=== PATIENT | female | born 2000 | race African-American/Black ===

== ENCOUNTER 2020-08-09 07:52 | Emergency (ER) | payer OTHER ==
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
[2020-08-09 08:41] VITALS: BP 120/75
== END 2020-08-09 08:42 | disposition home or self-care (01) ==
LOC: ED 07:52
DX: R51.9 Headache, unspecified (principal); V09.00XA Pedestrian injured in nontraffic accident involving unspecified motor vehicles, initial encounter; Y93.01 Activity, walking, marching and hiking; Y92.139 Unspecified place military base as the place of occurrence of the external cause
CPT/HCPCS: 99282

== ENCOUNTER 2023-05-16 15:06 | Emergency (ER) | payer OTHER ==
[2023-05-16 15:19] VITALS: BP 144/81; O2SAT 98
--- NOTE | 2023-05-16 15:57 | ED Physician Documentation ---
History of Present Illness - Stated complaint Stated Complaint: SHARP NECK PX - Chief complaint Chief Complaint: General - History obtained from History obtained from: Patient - History of Present Illness Timing: How many days ago (3) Pain level max: 7 Pain level now: 7 - Additonal information Additional information: 23-year-old female complains of neck pain for the past 3 days. Worse with movement, better with rest. Does not recall any injuries. No fevers. No chills. No numbness. No tingling. Denies any possibility of . No trauma. Has not had similar symptoms previously. Review of Systems Constitutional: denies: Fever, Chills GI: denies: Vomiting, Constipation : denies: Now [place] PD PAST MEDICAL HISTORY - Past Medical History Past Medical History: No - Past Surgical History Past Surgical History: No - Present Medications Home Medications: Ambulatory Orders Medication Instructions Recorded Confirmed Cyclobenzaprine [Flexeril] 10 mg PO TID PRN #20 tablet 05/16/23 Meloxicam [Mobic] 7.5 mg PO BID PRN #20 tablet 05/16/23 Oxycodone HCl/Acetaminophen 1 - 2 each PO Q6H PRN #14 tablet 05/16/23 [Percocet 5-325 mg Tablet] MDD 6 tabs - Allergies Allergies/Adverse Reactions: Allergies Allergy/AdvReac Type Severity Reaction Status Date / Time No Known Drug Allergies Allergy Verified 08/09/20 08:12 - Social History Does the pt smoke?: No Smoking Status: Never smoker Does the pt drink ETOH?: Yes Does the pt have substance abuse?: No - Immunizations Immunizations are current?: Yes PD ED PE NORMAL - Vitals Vital signs reviewed: Yes - General General: Alert and oriented X 3, No acute distress - HEENT HEENT: PERRL, Moist mucous membranes - Neck Neck: Supple, no meningeal sign, No bony TTP (No midline tenderness to palpation or percussion. No step-off or deformity. Paraspinal spasm left paracervical. Limited range of motion of the neck. She has fairly good range of motion down towards her chest but pain when extending her chin or especially turning left and right. NVI) - Cardiac Cardiac: RRR, Strong equal pulses - Respiratory Respiratory: No respiratory distress, Clear bilaterally - Abdomen Abdomen: Soft, Non tender, Non distended - Derm Derm: Warm and dry - Extremities Extremities: Normal ROM s pain - Neuro Neuro: Alert and oriented X 3, handicraft or hobby shop manager 2-12 intact, No motor deficit, No sensory deficit, Normal speech Eye Opening: Spontaneous Motor: Obeys Commands Verbal: Oriented GCS Score: 15 - Psych Psych: Normal mood, Normal affect Results - Vitals Vitals: Vital Signs - 24 hr 05/16/23 15:11 Temperature 37.2 C Heart Rate 98 Respiratory 20 Rate Blood Pressure 144/81 H O2 Saturation 98 Oxygen O2 Source Room air PD Medical Decision Making - ED course Complexity details: considered differential, d/w patient ED course: 23-year-old female with what appears to be muscular spasm, right neck. Gradually worsened over the past [address] on pain medications and muscle relaxants for home. No fevers. No evidence of infection, meningitis, sepsis, subarachnoid hemorrhage. No headache. Patient is well-appearing, nontoxic. Encourage gentle stretching at home. Patient counseled regarding signs and symptoms for which I believe and urgent re-evaluation would be necessary. Patient with good understanding of and agreement to plan and is comfortable going home at this time This document was made in part using voice recognition software. While efforts are made to proofread this document, sound alike and grammatical errors may occur. Departure - Departure Disposition: 01 Home, Self Care Clinical Impression: Wry neck Condition: Good Instructions: ED Spasm Neck No Injury Follow-Up: [facility] [Provider Group] Prescriptions: Cyclobenzaprine [Flexeril] 10 mg PO TID PRN #20 tablet PRN Reason: Spasms Meloxicam [Mobic] 7.5 mg PO BID PRN #20 tablet PRN Reason: Pain Oxycodone HCl/Acetaminophen [Percocet 5-325 mg Tablet] 1 - 2 each PO Q6H PRN #14 tablet MDD 6 tabs PRN Reason: pain Comments: Please follow-up with your doctor for further care. You appear to have a spasm of the muscles around your cervical spine today. Continue to gently stretch this at home. This should improve over the next few days. Use the pain medication and muscle relaxants to help speed your recovery. Please follow-up with your doctor for further care. Return if you worsen. Your prescription was sent to [facility] in [place]. I am prescribing a short course of narcotic pain medication for you. These are potentially dangerous and addictive medications that should be used carefully. These medications may constipate you. Take an nioz-jbs-rzcrapf stool softener (docusate) twice daily with plenty of water while taking these medications. If you go 24 hours without a bowel movement, take [id number]-lkv-wzgfmko miralax, per package instructions. Do not drink or drive while taking these medications. If you received narcotic or sedating medications while in the emergency department, do not drive for 24 hours. Store this medication in a safe, secure place and out of reach of children. It is a violation of federal law to give or sell this medication to another person or to use in a manner other than prescribed. The ED will not refill narcotic prescriptions, including prescriptions lost or stolen. To dispose of unwanted medications: 1. [facility] at [address] in [place] has a medication drop box. They accept prescription medications (in pill form) Thursday through Thursday 9:00 a.m. to 5:00 p.m. 2. The [facility] [employer] accepts prescription medications (in pill form only) for disposal year round. Call for more information. 3. Contact the [facility] for the next [facility] sponsored prescription drug collection event. , [phone], or [phone]; Forms: PCP List, Activity restrictions Discharge Date/Time: 05/16/23 16:12
[2023-05-16] MEDS: oxyCODONE 5 MG TABLET PO STA (16:04)
[2023-05-16] MEDS: CYCLOBENZAPRINE 10 MG TABLET PO STA (16:05)
== END 2023-05-16 16:12 | disposition home or self-care (01) ==
LOC: ED 15:06
DX: M43.6 Torticollis (principal)
CPT/HCPCS: 99283

== ENCOUNTER 2024-01-13 08:00 | Outpatient (CLI) | payer OTHER ==
[2024-01-14 07:36] LABS: BILIRUBIN,URINE NEGATIVE (NEGATIVE); GLUCOSE, URINE (UA) NEGATIVE (NEGATIVE); KETONES,URINE (UA) NEGATIVE (NEGATIVE); LEUKOCYTE ESTERASE, URINE NEGATIVE (NEGATIVE); NITRITE,URINE NEGATIVE (NEGATIVE); OCCULT BLOOD,URINE NEGATIVE (NEGATIVE); PROTEIN,URINE NEGATIVE (NEGATIVE); UROBILINOGEN,URINE 0.2 (NORMAL) E.U./dL (NORMAL)
[2024-01-14 07:51] LABS: CLARITY,URINE CLEAR (CLEAR)
[2024-01-14 07:52] LABS: BACTERIA,URINE Rare /HPF (None Seen); RBC,URINE None Seen /HPF (0-5); SQUAMOUS EPITHELIAL CELL,UR RARE Squamous (<= Few); WBC,URINE 0-3 /HPF (0-5)
== END 2024-01-13 23:59 | disposition home or self-care (01) ==
LOC: LAB.WC 08:00
PROVIDERS: ATTEND Obstetrics & Gynecology
DX: Z34.00 Encounter for supervision of normal first pregnancy, unspecified trimester (principal)
CPT/HCPCS: 81001; 87086

== ENCOUNTER 2024-01-20 19:47 | Outpatient (CLI) | payer OTHER ==
--- NOTE | 2024-01-20 21:38 | Ultrasound Report ---
PROCEDURE: OB 1st Trimester INDICATIONS: POSITIVE TEST OUTSIDE/PRIOR DATING DATA: Last menstrual period (LMP): 11/08/2023. LMP-based estimated date of delivery (TANISHA): 08/14/2024. First dating scan (date and location): 01/20/2024. Estimated date of delivery (TANISHA) from first dating scan: 08/11/2024. TECHNIQUE: Real-time scanning was performed of the fetus and maternal pelvic organs, with image documentation. COMPARISON: None. FINDINGS: Intrauterine gestational sac present. Embryo: [place]-rump length measures 3.9 cm, consistent with 10 weeks and 6 days. Heart rate: 169 bpm. Other: Subchorionic bleed measuring 1.9 x 1.7 x 2.9 cm. Measurement variability in dating: +/- 4 weeks by LMP, +/- 7 days by mean sac diameter (use before 6 weeks gestation if crown-rump length not able to be measured), +/- 5 days by crown-rump length (6-12 weeks gestation). Maternal organs: Left paraovarian cyst measuring 2.8 cm. Right ovarian simple cyst measuring 2 cm.. IMPRESSION: 1.Single live intrauterine consistent with 10 weeks and 6 days. 2.Subchorionic hemorrhage measuring 1.9 x 1.7 x 2.9 cm. Reviewed by: Vic Reid MD on 01/20/2024 9:37 PM PDT Approved by: Vic Reid MD on 01/20/2024 9:37 PM PDT Station ID: [id number]
== END 2024-01-20 19:48 | disposition home or self-care (01) ==
LOC: DI 19:47
PROVIDERS: ATTEND Obstetrics & Gynecology
DX: O20.8 Other hemorrhage in early pregnancy (principal); Z3A.10 10 weeks gestation of pregnancy

== ENCOUNTER 2024-02-09 11:57 | Emergency (ER) | payer OTHER ==
[2024-02-09 12:13] VITALS: BP 129/75; O2SAT 100
[2024-02-09 12:31] LABS: RAPID STREP SCREEN Negative (Negative)
[2024-02-09 13:15] LABS: CORONAVIRUS 229E-RESP PCR NOT DETECTED; CORONAVIRUS HKU1-RESP PCR NOT DETECTED; CORONAVIRUS NL63-RESP PCR NOT DETECTED; CORONAVIRUS OC43-RESP PCR NOT DETECTED
[2024-02-09 13:16] LABS: B. PARAPERTUSSIS- RESP PCR PAN NOT DETECTED; B. PERTUSSIS- RESP PCR PANEL NOT DETECTED; C. PNEUMONIAE- RESP PCR PANEL NOT DETECTED; HUMAN METAPNEUMOVIRUS NOT DETECTED; INFLUENZA A- RESP PCR PANEL NOT DETECTED; INFLUENZA B - RESP PCR PANEL NOT DETECTED; M. PNEUMONIAE- RESP PCR PANEL NOT DETECTED; PARAINFLUENZA VIRUS 1 NOT DETECTED; PARAINFLUENZA VIRUS 2 NOT DETECTED; PARAINFLUENZA VIRUS 3 NOT DETECTED; PARAINFLUENZA VIRUS 4 NOT DETECTED; RHINOVIRUS/ENTEROVIRUS NOT DETECTED; RSV- RESP PCR PANEL NOT DETECTED
[2024-02-09 13:17] LABS: SARS-CoV-2 -RESP PCR PANEL DETECTED
--- NOTE | 2024-02-09 13:21 | ED Physician Documentation ---
History of Present Illness - Stated complaint Stated Complaint: SORE THROAT, CHEST PX, WEAKNESS - Chief complaint Chief Complaint: General - Additonal information Additional information: 24-year-old female who presents with cough sore throat nasal congestion for 2 days. She is feeling slightly better today but is fatigued and achy. She is 13w . She works at a daycare. She is requesting a note to be off of work due to illness. She denies any fever, no chest pain or difficulty breathing, no abdominal pain nausea vomiting or diarrhea. No vaginal bleeding or abd pain. Review of Systems Constitutional: reports: Myalgias, Fatigue Eyes: reports: Reviewed and negative Ears: reports: Reviewed and negative Nose: reports: Rhinorrhea / runny nose, Congestion Throat: reports: Sore throat Cardiac: reports: Reviewed and negative Respiratory: reports: Cough. denies: Dyspnea, Wheezing GI: reports: Reviewed and negative : reports: Reviewed and negative PD PAST MEDICAL HISTORY - Past Medical History Past Medical History: Yes - Past Surgical History Past Surgical History: No - Present Medications Home Medications: Ambulatory Orders Medication Instructions Recorded Confirmed Cyclobenzaprine [Flexeril] 10 mg PO TID PRN #20 tablet 05/16/23 Meloxicam [Mobic] 7.5 mg PO BID PRN #20 tablet 05/16/23 Oxycodone HCl/Acetaminophen 1 - 2 each PO Q6H PRN #14 tablet 05/16/23 [Percocet 5-325 mg Tablet] MDD 6 tabs - Allergies Allergies/Adverse Reactions: Allergies Allergy/AdvReac Type Severity Reaction Status Date / Time No Known Drug Allergies Allergy Verified 02/09/24 12:09 - Social History Does the pt smoke?: No Smoking Status: Never smoker Does the pt drink ETOH?: Yes Does the pt have substance abuse?: No - Immunizations Immunizations are current?: Yes - POLST Patient has POLST: No PD ED PE NORMAL - Vitals Vital signs reviewed: Yes - General General: Alert and oriented X 3, No acute distress, Well developed/nourished - HEENT HEENT: Atraumatic, Moist mucous membranes, Pharynx benign - Neck Neck: Supple, no meningeal sign, No adenopathy - Cardiac Cardiac: RRR, No murmur, No gallop, No rub - Respiratory Respiratory: No respiratory distress, Clear bilaterally - Abdomen Abdomen: Normal bowel sounds, Soft, Non tender, Non distended - Derm Derm: Normal color, Warm and dry, No rash - Neuro Neuro: Alert and oriented X 3 Eye Opening: Spontaneous Motor: Obeys Commands Verbal: Oriented GCS Score: 15 Results - Vitals Vitals: Vital Signs - 24 hr 02/09/24 12:10 Temperature 37.2 C Heart Rate 100 Respiratory 16 Rate Blood Pressure 129/75 O2 Saturation 100 Oxygen O2 Source Room air - Labs Labs: Laboratory Tests 02/09/24 02/09/24 12:19 12:19 Nasal Adenovirus (PCR) NOT DETECTED Nasal B. parapertussis DNA (PCR) NOT DETECTED Nasal Coronavir 229E PCR NOT DETECTED Nasal Coronavir HKU1 PCR NOT DETECTED Nasal Coronavir NL63 PCR NOT DETECTED Nasal Coronavir OC43 PCR NOT DETECTED Nasal Enterovir/Rhinovir PCR NOT DETECTED Nasal Influenza B PCR NOT DETECTED Nasal Influenza A PCR NOT DETECTED Nasal Parainfluen 1 PCR NOT DETECTED Nasal Parainfluen 2 PCR NOT DETECTED Nasal Parainfluen 3 PCR NOT DETECTED Nasal Parainfluen 4 PCR NOT DETECTED Nasal RSV (PCR) NOT DETECTED Nasal B.pertussis DNA PCR NOT DETECTED Nasal C.pneumoniae (PCR) NOT DETECTED Abran Human Metapneumo PCR NOT DETECTED Nasal M.pneumoniae (PCR) NOT DETECTED Nasal SARS-CoV-2 (PCR) DETECTED A Group A Strep Rapid Negative PD Medical Decision Making - ED course Complexity details: reviewed results, considered differential, d/w patient ED course: 23-year-old female presented with 2 days of cough congestion and sore throat as described in HPI. We obtained a viral panel and it was positive for COVID, strep test is negative. Patient advised of findings, Discussed supportive measures including Tylenol as needed, stay well-hydrated again plenty of rest. Patient needs a work note tomorrow and then can return at her next regular scheduled shift next week. She was advised of return precautions if any new or worsening symptoms. Departure - Departure Disposition: 01 Home, Self Care Clinical Impression: COVID-19 Condition: Good Instructions: ED Viral Syndrome Forms: PCP List
== END 2024-02-09 13:37 | disposition home or self-care (01) ==
LOC: ED 11:57
DX: O98.511 Other viral diseases complicating pregnancy, first trimester (principal); U07.1 COVID-19; Z3A.13 13 weeks gestation of pregnancy
CPT/HCPCS: 87070; 87430; 87633; 99282; 99283

== ENCOUNTER 2024-02-18 12:11 | Outpatient (CLI) | payer OTHER ==
[2024-02-18 14:38] LABS: NEISSERIA GONORRHOEAE DNA NEGATIVE (NEGATIVE); TRICHOMONAS VAGINALIS DNA NEGATIVE (NEGATIVE)
[2024-02-18 14:56] LABS: CHLAMYDIA TRACHOMATIS DNA POSITIVE (NEGATIVE)
== END 2024-02-18 12:12 | disposition home or self-care (01) ==
LOC: LAB.WC 12:11
PROVIDERS: ATTEND Obstetrics & Gynecology
DX: Z11.3 Encounter for screening for infections with a predominantly sexual mode of transmission (principal)
CPT/HCPCS: 87491; 87591; 87661

== ENCOUNTER 2024-03-28 16:57 | Outpatient (CLI) | payer OTHER ==
--- NOTE | 2024-03-29 14:36 | Ultrasound Report ---
PROCEDURE: OB Anatomy Scan INDICATIONS: SUPERVISION OF NORMAL OUTSIDE/PRIOR DATING DATA: Last menstrual period (LMP): 11/08/2023. LMP-based estimated date of delivery (TANISHA): 08/14/2024. First dating scan (date and location): 01/20/2024. Estimated date of delivery (TANISHA) from first dating scan: 08/11/2024. The below data below was generated using the clinical TANISHA of 08/14/2024 TECHNIQUE: Real-time scanning was performed of the fetus, with image documentation and biometric measurements. Endovaginal scanning: Not performed. COMPARISON: OB ultrasound 01/20/2024 FINDINGS: General: A single living intrauterine gestation is present. Presentation: Vertex Placenta: Placental position is anterior, without previa. Amniotic fluid index: 13.8 cm, within normal limits for gestational age. heart rate: 148 beats per minute. Maternal cervical canal: 3.8 cm long; normal length is 2.5 cm or more. biometrics: Biparietal diameter: 4.9 cm, 21 weeks 0 days, 81st percentile Head circumference: 18.3 cm, 20 weeks 5 days, 68th percentile Abdominal circumference: 14.7 cm, 20 weeks 0 days, 38th percentile Femur length: 3.5 cm, 21 weeks 0 days, 70th percentile Estimated gestational age from initial scan: 20 weeks 1 day Composite gestational age from present scan: 20 weeks 3 days Estimated weight and percentile: 355 g, 64th percentile Measurement variability in biometric dating: +/- 10 days from 12-20 weeks gestation, +/- 2 weeks from 20-30 weeks gestation, +/- 3 weeks at 30 weeks gestation or later. Anatomic survey: Neuro: Ventricles are normal at less than 10 mm. Cisterna magna is normal at 3-11 mm. Cerebellum i s normal in size and morphology. Nuchal skin fold: Normal at less than 6 mm between 14 and 20 weeks gestational age. Face: Nose and lips, facial profile are normal. Spine: No evidence for spina bifida. Heart: 4-chambered heart is present, with normal ventricular outflow tracts. Diaphragm: Diaphragm is intact. Stomach: Left-sided stomach is present. Kidneys: No hydronephrosis. Normal is less than 5 mm in 2nd trimester, less than 7 mm in 3rd trimester. Cord: 3 vessel cord has orthotopic insertion. Bladder: Normal in size. Extremities: All 4 extremities are visualized. IMPRESSION: 1.Single live intrauterine with appropriate interval growth. 2. anatomic survey is within normal limits. Reviewed by: Casey Tavares MD on 03/29/2024 2:35 PM PDT Approved by: Casey Tavares MD on 03/29/2024 2:35 PM PDT Station ID: [id number]
== END 2024-03-28 16:58 | disposition home or self-care (01) ==
LOC: DI 16:57
PROVIDERS: ATTEND Nurse Practitioner
DX: Z34.02 Encounter for supervision of normal first pregnancy, second trimester (principal)

== ENCOUNTER 2024-08-18 00:06 | Inpatient (IN) ==
[2024-08-18] MEDS ORDERED: fentaNYL 100 MCG/2 ML VIAL IVP PRN ×2 (00:38→11:52)
[2024-08-18] MEDS ORDERED: METOCLOPRAMIDE 10 MG/2 ML VIAL IVP PRN ×3 (00:38→11:52)
[2024-08-18] MEDS ORDERED: TERBUTALINE 1 MG/ML VIAL SUBQ PRN (00:38)
[2024-08-18] MEDS ORDERED: diphenhydrAMINE INJ 50 MG/ML VIAL IVP PRN ×2 (00:38→04:23)
[2024-08-18] MEDS ORDERED: lidocaine 1% 20 ML MDV ID PRN (00:38)
[2024-08-18] MEDS ORDERED: OXYTOCIN/SODIUM CHLORIDE 500 ML IV PRN ×2 (00:38→12:27)
[2024-08-18] MEDS ORDERED: NIFEdipine 10 MG CAPSULE PO PRN ×2 (00:38→12:27)
[2024-08-18] MEDS ORDERED: SODIUM CHLORIDE FLUSH 0.9% 10 ML SYRINGE IVP PRN (00:38)
[2024-08-18] MEDS ORDERED: METOCLOPRAMIDE 10 MG TABLET PO PRN (00:38)
[2024-08-18] MEDS ORDERED: METHYLERGONOVINE 0.2 MG/ML VIAL IM PRN (00:38)
[2024-08-18] MEDS ORDERED: LABETALOL 20 MG/4 ML SYRINGE IVP PRN ×6 (00:38→12:27)
[2024-08-18] MEDS ORDERED: CALCIUM CARBONATE CHEW 500 MG TABLET PO PRN (00:38)
[2024-08-18] MEDS ORDERED: ONDANSETRON ODT 4 MG TABLET PO PRN (00:38)
[2024-08-18] MEDS ORDERED: miSOPROStoL 200 MCG TABLET BC PRN (00:38)
[2024-08-18] MEDS ORDERED: OXYTOCIN 10 UNIT/ML VIAL IM PRN (00:38)
[2024-08-18] MEDS ORDERED: miSOPROStoL 200 MCG TABLET PR PRN (00:38)
[2024-08-18] MEDS ORDERED: FAMOTIDINE 20 MG/2 ML VIAL IVP PRN (00:38)
[2024-08-18] MEDS ORDERED: hydrALAZINE INJ 20 MG/ML VIAL IVP PRN ×3 (00:38→12:27)
[2024-08-18] MEDS ORDERED: TRANEXAMIC ACID IN NACL 1,000 MG/100 ML BAG IV PRN (00:38)
[2024-08-18 00:58] LABS: RUPTURE OF MEMBRANES PLUS POSITIVE (NEGATIVE)
[2024-08-18 01:19] LABS: BASOPHILS % (AUTO) 0.3 %; EOSINOPHILS # (AUTO) 0.1 10^3/uL (0.0-0.7); EOSINOPHILS % (AUTO) 0.7 %; HCT - HEMATOCRIT 38.9 % (37.0-47.0); LYMPHOCYTES # (AUTO) 2.2 10^3/uL (1.5-3.5); LYMPHOCYTES % (AUTO) 21.3 %; MEAN CORPUSCULAR HEMOGLOBIN 22.9 pg (27.0-31.0); MEAN CORPUSCULAR HGB CONC 30.8 g/dL (32.0-36.0); MEAN CORPUSCULAR VOLUME 74.2 fL (81.0-99.0); MEAN PLATELET VOLUME 12.1 fL (7.9-10.8); MONOCYTES # (AUTO) 1.2 10^3/uL (0.0-1.0); MONOCYTES % (AUTO) 11.1 %; NEUTROPHILS # (AUTO) 6.8 10^3/uL (1.5-6.6); NEUTROPHILS % (AUTO) 65.9 %; NRBC ABSOLUTE COUNT (AUTO) 0.02 x10^3/uL; NUCLEATED RED BLOOD CELLS AUTO 0.2 /100WBC; PLT - PLATELET COUNT 207 10^3/uL (130-450); RED BLOOD COUNT 5.24 10^6/uL (4.20-5.40); RED CELL DISTRIBUTION WIDTH 17.2 % (12.0-15.0); WHITE BLOOD COUNT 10.4 x10^3/uL (4.8-10.8)
[2024-08-18] MEDS: LACTATED RINGERS 1,000 ML IV PRN (01:40)
[2024-08-18] MEDS ORDERED: ROPIVACAINE 0.2% 200 MG/100 ML BAG EP ONE (01:58)
[2024-08-18] MEDS ORDERED: LIDOCAINE 2%-EPI 1:100000 20 ML MDV ONE ×3 (01:58→11:19)
[2024-08-18 03:28] LABS: ALBUMIN 3.7 g/dL (3.2-5.5); ALBUMIN/GLOBULIN RATIO 1.1 (1.0-2.2); BILIRUBIN,TOTAL 0.3 mg/dL (0.2-1.0); CALCIUM 9.5 mg/dL (8.5-10.3); CREATININE 0.7 mg/dL (0.6-1.3); POTASSIUM 4.2 mmol/L (3.5-4.5); TOTAL PROTEIN 7.1 g/dL (6.4-8.9)
[2024-08-18 03:50] LABS: CREATININE,URINE 117.8 mg/dL; PROTEIN/CREATININE RATIO,URINE 0.7 (<=0.2)
[2024-08-18] MEDS ORDERED: ePHEDrine 50 MG/ML VIAL IVP ONE (04:14)
[2024-08-18] MEDS: ePHEDrine 50 MG/ML VIAL IVP PRN (04:20)
[2024-08-18] MEDS ORDERED: NALOXONE 0.4 MG/ML VIAL IVP PRN ×3 (04:23→12:27)
[2024-08-18] MEDS ORDERED: ONDANSETRON 4 MG/2 ML VIAL IVP PRN ×2 (04:23→11:52)
[2024-08-18] MEDS ORDERED: NALBUPHINE 10 MG/ML AMP IVP PRN (04:23)
[2024-08-18] MEDS: LACTATED RINGERS 1,000 ML IV SCH ×2 (08:27→21:07)
[2024-08-18] MEDS: ACETAMINOPHEN 325 MG TABLET PO PRN (09:45)
[2024-08-18] MEDS: ROPIVACAINE 0.2% 200 MG/100 ML BAG EP PRN (09:54)
[2024-08-18] MEDS ORDERED: LIDOCAINE 1%-EPI 1:100000 20 ML MDV ONE (10:47)
[2024-08-18] MEDS ORDERED: ONDANSETRON 4 MG/2 ML VIAL ONE (10:55)
[2024-08-18] MEDS ORDERED: PHENYLEPHRINE HCL 0.5 MG/5 ML AMPULE ONE (10:55)
--- NOTE | 2024-08-18 11:04 | ANESTHESIA PROCEDURE NOTE ---
Pre-Anesthesia VS, & Labs Diagnosis Surgical Diagnosis:: active labor Procedure Procedure: vaginal delivery Vitals Vital Signs: Temp Pulse Resp 36.5 C 69 20 08/18/24 00:11 08/18/24 00:11 08/18/24 00:11 NPO NPO: Other (clear liquids during labor) Is Patient ?: Yes Lab Results Current Lab Results: Laboratory Tests 08/18/24 01:00: WBC 10.4, RBC 5.24, Hgb 12.0, Hct 38.9, MCV 74.2 L, MCH 22.9 L, MCHC 30.8 L, RDW 17.2 H, Plt Count 207, MPV 12.1 H, Neut # (Auto) 6.8 H, Lymph # (Auto) 2.2, [place] # (Auto) 1.2 H, Eos # (Auto) 0.1, Baso # (Auto) 0.0, Absolute Nucleated RBC 0.02, Nucleated RBC % 0.2, Sodium 136, Potassium 4.2, Chloride 108, Carbon Dioxide 18 L, Anion Gap 10.0, BUN 8, Creatinine 0.7, Estimated GFR (MDRD) 124, Glucose 95, Calcium 9.5, Total Bilirubin 0.3, AST 17, ALT 14, A lkaline Phosphatase 162 H, Total Protein 7.1, Albumin 3.7, Globulin 3.4, Albumin/Globulin Ratio 1.1, Blood Type O POSITIVE, Antibody Screen NEGATIVE Lab results reviewed: Yes 08/18/24 01:00 08/18/24 01:00 Meds/Allgy Home Medications Ambulatory Orders Medication Instructions Recorded Confirmed cetirizine 10 mg capsule (Zyrtec) 10 mg PO QDAY PRN 05/03/24 08/11/24 vits no.126-ferrous fum tab PO 05/03/24 08/11/24 28 mg iron-folic acid 800 mcg tablet (Classic ) Allergies Allergies Allergy/AdvReac Type Severity Reaction Status Date / Time banana Allergy Unknown shortness Verified 08/04/24 12:46 of breath pollen extracts Allergy Unknown itchy eyes Verified 08/04/24 12:46 [facility] Medical History Medical History (Updated 08/18/24 @ 11:03 by Mellisa Fam CRNA) No pertinent past medical history Surgical History Surgical History (Updated 08/18/24 @ 11:03 by Mellisa Fam CRNA) No pertinent past surgical history Family History Family History Paternal grandfather Diabetes Social History Social History (Updated 05/27/24 @ 12:24 by Karen Kerns MA) Smoking Status: Never smoker Do you dip or chew tobacco?: No Do you vape?: No Relationship: Spouse Living Situation Details: Partner Rafa since 2020. both were in [place]. He just signed another contract until 2026. Won't be deployed until December 2024 probably. She is originally from [place], Rafa is from [place], [place]. Nicole maybe wants to be an fish roe technician in future. 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
[2024-08-18] MEDS ORDERED: OXYTOCIN 10 UNIT/ML VIAL ONE (11:30)
--- NOTE | 2024-08-18 11:46 | ANESTHESIA PROCEDURE NOTE ---
Pre-Anesthesia VS, & Labs Diagnosis Surgical Diagnosis:: active labor/failure to progress Procedure Procedure: C section Vitals Vital Signs: Temp Pulse Resp 36.5 C 69 20 08/18/24 00:11 08/18/24 00:11 08/18/24 00:11 Height (in): 5 ft 6 in Weight (kg): 93 kg Body Mass Index: 33.0 BMI Classification: Obese NPO NPO: >8 hours Is Patient ?: Yes Estimated Due Date:: 08/18/24 Lab Results Current Lab Results: Laboratory Tests 08/18/24 01:00: WBC 10.4, RBC 5.24, Hgb 12.0, Hct 38.9, MCV 74.2 L, MCH 22.9 L, MCHC 30.8 L, RDW 17.2 H, Plt Count 207, MPV 12.1 H, Neut # (Auto) 6.8 H, Lymph # (Auto) 2.2, [place] # (Auto) 1.2 H, Eos # (Auto) 0.1, Baso # (Auto) 0.0, Absolute Nucleated RBC 0.02, Nucleated RBC % 0.2, Sodium 136, Potassium 4.2, Chloride 108, Carbon Dioxide 18 L, Anion Gap 10.0, BUN 8, Creatinine 0.7, Estimated GFR (MDRD) 124, Glucose 95, Calcium 9.5, Total Bilirubin 0.3, AST 17, ALT 14, A lkaline Phosphatase 162 H, Total Protein 7.1, Albumin 3.7, Globulin 3.4, Albumin/Globulin Ratio 1.1, Blood Type O POSITIVE, Antibody Screen NEGATIVE Lab results reviewed: Yes 08/18/24 01:00 08/18/24 01:00 Meds/Allgy Home Medications Ambulatory Orders Medication Instructions Recorded Confirmed cetirizine 10 mg capsule (Zyrtec) 10 mg PO QDAY PRN 05/03/24 08/11/24 vits no.126-ferrous fum tab PO 05/03/24 08/11/24 28 mg iron-folic acid 800 mcg tablet (Classic ) Allergies Allergies Allergy/AdvReac Type Severity Reaction Status Date / Time banana Allergy Unknown shortness Verified 08/04/24 12:46 of breath pollen extracts Allergy Unknown itchy eyes Verified 08/04/24 12:46 [facility] Medical History Medical History No pertinent past medical history Surgical History Surgical History No pertinent past surgical history Family History Family History Paternal grandfather Diabetes Social History Social History Smoking Status: Never smoker Do you dip or chew tobacco?: No Do you vape?: No Relationship: Spouse Living Situation Details: Partner Raaf since 2020. both were in [employer]. He just signed another contract until 2026. Won't be deployed until December 2024 probably. She is originally from [place], Rafa is from [place], [place]. Nicole maybe wants to be an certified scrub tech in future. 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
[2024-08-18] MEDS ORDERED: fentaNYL 100 MCG/2 ML VIAL ONE (11:51)
[2024-08-18] MEDS ORDERED: ATROPINE ABBOJECT 1 MG/10 ML SYRINGE IVP PRN (11:52)
[2024-08-18] MEDS ORDERED: HYDROmorphone 0.5 MG/0.5 ML SYRINGE IVP PRN (11:52)
[2024-08-18] MEDS ORDERED: MORPHINE 2 MG/ML CARPUJECT IVP PRN (11:52)
[2024-08-18] MEDS ORDERED: ePHEDrine 50 MG/ML VIAL IVP PRN (11:52)
[2024-08-18] MEDS ORDERED: KETOROLAC 30 MG/ML VIAL ONE (11:54)
--- NOTE | 2024-08-18 11:54 | PHARMACY PROGRESS NOTE ---
Best Possible Medication History Admit Date and Time: 08/18/24 0038 Home Medications Medication Instructions Recorded Confirmed Type cetirizine 10 mg capsule (Zyrtec) 10 mg PO QDAY PRN allergy symptoms 05/03/24 08/18/24 History vits no.126-ferrous fum 1 tab PO DAILY 05/03/24 08/18/24 History 28 mg iron-folic acid 800 mcg tablet (Classic ) Processed by: Pharmacy Medications reviewed in ED?: No Medication History completed: Yes Secondary Source(s): Physician records [facility] Statement: As the person ultimately responsible for medication therapy, providers are able to order a medication from an existing home medication list in [facility] via the "Reconcile Routine" prior to Confirmation of that medication by product support analyst. Such practice is discouraged except when the physician, in their clinical judgment, deems that a medical need exists for a medication without regard to previous use.
[2024-08-18] MEDS ORDERED: AZITHROMYCIN INJ 500 MG in SODIUM CHLORIDE 0.9% 250 ML IV SCH (12:00)
[2024-08-18] MEDS ORDERED: SODIUM CHLORIDE 0.9% 10 ML VIAL IVP ONE ×2 (12:10→12:12)
[2024-08-18] MEDS ORDERED: ROPIVACAINE 0.5% PF 20 ML VIAL ONE (12:10)
[2024-08-18] MEDS ORDERED: OXYTOCIN/SODIUM CHLORIDE 500 ML IV ONE (12:29)
--- NOTE | 2024-08-18 12:34 | HISTORY & PHYSICAL EXAMINATION ---
Admit History Visit Reason Visit Reason: Contractions and Membranes rupture : 1 Care: positive [facility] Risk/History: positive None Complications This : positive None Smoking Status: Never smoker Mother's Labs GBS: positive Group B Step Negative Rubella Status: positive Non-immune Other Maternal History Other Maternal History: patient called about 9 and said SROM had occurred. not arianna too much yet. I reviewed her records at that time. she is gbs neg so ok to wait a bit. She presented about midnight and contractions were more painful. She was admitted, received her epidural and was resting. 4 cm before epidural. some late decels and hypotension after epidural treated with ephedrine. At 0630 the RN called me come in and evaluate FHT. She was 8 cm and still high. having lates. etirizine (Zyrtec) 10 mg PO QDAY PRN vit no.[id number]-onyo-tgorj 28 mg iron- 800 mcg (Classic ) tabs PO Expected Delivery Route/Plan vag delivery Specific Issues/Plans LMP: 11/08/2023 (estimated) TANISHA by LMP: 08/14/2024 US:01/20/2024, 10 weeks 6 days, 08/11/2024 Final TANISHA: 08/14/2024 by LMP consistent with 10-week ultrasound Allergies: NKDA RX: PNV, Zyrtec Chlamydia cervicitis in : -Treated in early , vomited for spell, but took a second dose. Partner also treated. -Repeat collected 04/04 and negative. Pre- Weight: 182lb BMI: 29.61 Blood type: O+ Antibody: NEGATIVE CBC: H/H/PLT 10.3/34./236 RUB:NON IMMUNE VZV:IMMUNE HBsAg: NEG HepC: NR RPR/AB-EIA:NR HIV: NR PAP:04/15/2023: ASCUS GC/CT:02/18/24 POSITIVE CHLAMYDIA 04/04- NEGATIVE HSV: denies Genetic testing:[id number]- NEGATIVE Covid: declines Flu: rcvd 05/05/24 FAS:WNL EFW 64% 3 VC anterior placenta REGI normal 50gm OGCT: 81 TDAP: 05/19 given Breast Pump: given RSV: 06/27/24 mls 3rd trimester CBC: 10.3/34.236 GBS & GCCT: Negative/Negative Delivery plan: Contraception:Depo-Provera HPI Current : Current EDU 08/18/24 Gestation 40 Weeks and 4 Days Vital Signs Temperature 36.5 C 08/18/24 00:11 Pulse Rate 69 08/18/24 00:11 Respiratory Rate 20 08/18/24 00:11 Meds/Allgy Home Medications Ambulatory Orders Medication Instructions Recorded Confirmed cetirizine 10 mg capsule (Zyrtec) 10 mg PO QDAY PRN allergy symptoms 05/03/24 08/18/24 vits no.126-ferrous fum 1 tab PO DAILY 05/03/24 08/18/24 28 mg iron-folic acid 800 mcg tablet (Classic ) Allergies Allergies Allergy/AdvReac Type Severity Reaction Status Date / Time banana Allergy Unknown shortness Verified 08/04/24 12:46 of breath pollen extracts Allergy Unknown itchy eyes Verified 08/04/24 12:46 PFSH Medical History Medical History No pertinent past medical history Surgical History Surgical History No pertinent past surgical history Family History Family History Paternal grandfather Diabetes Social History Social History Smoking Status: Never smoker Do you dip or chew tobacco?: No Do you vape?: No Relationship: Spouse Living Situation Details: Partner Rafa since 2020. both were in [place]. He just signed another contract until 2026. Won't be deployed until December 2024 probably. She is originally from [place], Rafa is from [place], [place]. Nicole maybe wants to be an bicycle technician in future. 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 minimal swelling. good movement. Constitutional Reports: Fatigue Cardiovascular Denies: Irregular heart rate, chest pain or shortness of breath with exertion Respiratory Denies: Shortness of breath Endocrine Reports: Fatigue Physical Abdominal Exam Vital Signs: Temp Pulse Resp 36.5 C 69 20 08/18/24 00:11 08/18/24 00:11 08/18/24 00:11 Contraction Frequency (min/apart): irregular and coupling. Contraction Intensity: positive Moderate Uterine Resting Tone: positive Soft Monitoring Heart Rate Baseline: 165 Strip Review: positive Category II Presentation Presentation: positive Vertex Vaginal Exam Membranes: positive Membranes ruptured Dilation (in cm): 8 Station: positive -2 Speculum Exam Speculum Exam Performed: positive No Plan for Labor Plan For Labor I expect patient to be DC'd or transferred within 96 hours.: Yes Conclusion/Plan Problem List (1) Normal labor: Plan: epidural, many position changes. will watch FHT closely. Lab Results Lab results reviewed: Yes 08/18/24 01:00 08/18/24 01:00
--- NOTE | 2024-08-18 12:47 | PROVIDER PROGRESS NOTE ---
Labor Progress Note Uterine Monitoring Uterine Monitoring Mode: positive External toco and IUPC Contraction Frequency (min/apart): very irregular. coupling. Contraction Intensity: positive Moderate Uterine Resting Tone: positive Soft Other Uterine Monitoring: contractions are not adequate. Monitoring Monitor Mode: positive External ultrasound Heart Rate Baseline: 165 Heart Rate Variability: positive Minimal (0-5 bpm) Accelerations: positive Absent Decelerations: positive Late and Recurrent (>50% x20 min) Vaginal Exam Dilation (in cm): 8, swollen on side Station: -1 Labor Progress Note Labor Progress Note/Additional Text: no progress in last hour. tracing too awful to give pitocin. explained to family. recommend c section. they agree. risks and benefits discussed. consent signed. Team aware. Time 10:30 am 08/18/24
[2024-08-18] MEDS ORDERED: ACETAMINOPHEN 500 MG TABLET PO SCH (13:00)
[2024-08-18] MEDS: oxyCODONE 5 MG TABLET PO PRN (15:49)
[2024-08-18] MEDS: KETOROLAC 30 MG/ML VIAL IVP SCH (17:51)
--- NOTE | 2024-08-18 18:49 | OPERATIVE REPORT ---
Operative Report General Admit Date: 08/18/24 Procedure Data: Operation Date: 08/18/24 11:00 Proposed Procedures p Section(Not Applicable) - Marlene Sinha MD Actual Procedures p Section(Not Applicable) - Marlene Sinha MD Anesthesia Type Spinal Case Staff Anesthesia Provider: Angel Ontiveros Anesthesia Provider: Imani Thakur Assisting Provider: Cassandra Lucas Case Times Into Recovery: 08/18/24 12:36 Procedure Start: 08/18/24 11:36 Procedure End: 08/18/24 12:20 Time out: 08/18/24 11:35 Pre-Op Diagnosis: failure to progress in labor. intolerance to labor Post Op Diagnosis: same, delivered Procedure Note Intake, IV Amount (ml): 1,000 Estimated Blood Loss (ml): 300 Output, Urine Amount (ml): 350 Pathology: none Indications: 24 yo G1 in spontaneous labor. progressed to 8 cm and then tracing category 2 and then 3. no progress. inadequate contractions. unable to give pitocin due to FWB. recommend c section. family agrees. Findings: Live female infant. 3040 gram, 20 inches long. apgars 8/9. cord gas 7.3. base excess -9.7. placenta had some calcifications. uterus, ovaries appeared normal. right tube normal. left tube with paratubal cyst that was drained. Complications: none Other Other Information/Narrative: Procedure: Low Transverse Section. Cattle Feeder: Sheri Lucas CNM My licensed investment sales assistant was scrubbed and present during the entire procedure and assisted with visualization, hemostasis, fundal pressure for delivery, and closure. Procedure Details: The risks, benefits, complications, treatment options, and expected outcomes were discussed with the patient. The patient concurred with the proposed plan, giving informed consent. The patient was taken to the Operating Room. 2 grams of Cefazolin and 500 mg Azithromycin were given. She had sequential compression devices on her lower extremities. Huber catheter was in place with her epidural. A Time Out was held and the above information confirmed. The patient was prepped in the usual sterile manner. Drapes were placed. Anesthesia was tested and found to be adequate. A Pfannenstiel incision was made and carried down through the subcutaneous tissue to the fascia. Fascial incision was made and extended transversely. The fascia was from the underlying rectus tissue superiorly and inferiorly. The peritoneum was identified and entered. Peritoneal incision was stretched. The John retractor was placed and rolled down. The uterus was palpated to examine lie. A low transverse uterine incision was made. The incision was stretched manually. Bag of water was entered during the process and fluid had meconium. The baby was elevated through the incision. The baby was delivered and brought up towards her chest to show mom. Baby was dried and stimulated. I waited for 1 minute to clamp the cord. After the umbilical cord was clamped and cut, cord blood was obtained for evaluation. The placenta was removed intact using gentle traction and appeared normal. The uterine outline, tubes and ovaries appeared normal. The uterine incision was closed with running locked sutures of 0 Monocryl suture. A second horizontal imbricating layer was placed with the same suture. Hemostasis was observed. The John retractor was removed. Rectus muscles were examined carefully for bleeding. The fascia was then reapproximated with running sutures of 0 Vicryl. The subcutaneous tissue was brought together with 3.0 Vicryl suture and the skin was closed with 4.0 Vicryl in subcuticular fascia. Wide steri strip was placed over the wound. Bandage was placed. Uterus was expressed. Fundus was firm. Patient was then brought to the PACU in stable condition. Instrument, sponge, and needle counts were correct prior the abdominal closure and at the conclusion of the case. Drains: Huber catheter to gravity Complications: None; patient tolerated the procedure well. Disposition: back to her room on FBP for recovery. Condition: stable Plan: Routine post op care
[2024-08-18] MEDS ORDERED: MEASLES,MUMPS & RUBELLA VACC 0.5 ML VIAL SUBQ ONE (19:13)
[2024-08-18] MEDS: SODIUM CHLORIDE FLUSH 0.9% 10 ML SYRINGE IVP SCH (19:32)
[2024-08-18] MEDS: LACTATED RINGERS 500 ML IV ONE (19:32)
[2024-08-18] MEDS: ceFAZolin (2G) 2 GM in SODIUM CHLORIDE 0.9% MINIBAG 100 ML IV ONE (19:32)
[2024-08-18] MEDS: ACETAMINOPHEN 500 MG TABLET PO SCH (20:09)
[2024-08-18] MEDS: DOCUSATE SODIUM 100 MG CAPSULE PO SCH (23:22)
[2024-08-19 06:36] LABS: HCT - HEMATOCRIT 29.9 % (37.0-47.0); HGB - HEMOGLOBIN 9.3 g/dL (12.0-16.0); MEAN CORPUSCULAR HEMOGLOBIN 23.6 pg (27.0-31.0); MEAN CORPUSCULAR HGB CONC 31.1 g/dL (32.0-36.0); MEAN CORPUSCULAR VOLUME 75.9 fL (81.0-99.0); MEAN PLATELET VOLUME 11.4 fL (7.9-10.8); RED BLOOD COUNT 3.94 10^6/uL (4.20-5.40); RED CELL DISTRIBUTION WIDTH 16.9 % (12.0-15.0); WHITE BLOOD COUNT 11.8 x10^3/uL (4.8-10.8)
[2024-08-19 06:50] LABS: ALBUMIN 2.6 g/dL (3.2-5.5); ALBUMIN/GLOBULIN RATIO 1.1 (1.0-2.2); BILIRUBIN,TOTAL 0.4 mg/dL (0.2-1.0); CALCIUM 8.1 mg/dL (8.5-10.3); CREATININE 0.8 mg/dL (0.6-1.3); POTASSIUM 4.2 mmol/L (3.5-4.5)
[2024-08-19 07:11] LABS: FERRITIN 22.1 ng/mL (11.0-306.8)
--- NOTE | 2024-08-19 09:22 | PROVIDER PROGRESS NOTE ---
Subjective Prog Note Date Prog Note Date: 08/19/24 Prog Note Time: 10:40 Subjective Pt reports feeling: Improved Subjective: POD #1 s/p 1' LTCS for failure to progress and cat 2-3 FHT. She has been doing well. She required a couple does of oxycodone for pain mgmt but has otherwise been doing well with Motrin/Tylenol. She has been passing flatus, tolerating a regular diet, and voiding without problems. She has been up and ambulating without dizziness or other complaints. Current Medications Current Medications Current Medications: Current Medications Generic Name Dose Route Start Last Admin Trade Name Freq PRN Reason Stop Dose Admin Acetaminophen 1,000 mg 08/18/24 20:00 08/19/24 03:11 Acetaminophen 500 Mg Tablet PO 1,000 mg Q8H DEVI Administration Calcium Carbonate/Glycine 1,000 mg 08/18/24 00:38 Calcium Carbonate Chew 500 Mg Tablet PO Q6HR PRN Heartburn Diphenhydramine HCl 25 mg 08/18/24 00:38 Diphenhydramine Inj 50 Mg/Ml Vial IVP Q6H PRN Allergy Symptoms Diphenhydramine HCl 12.5 - 25 mg 08/18/24 04:23 Diphenhydramine Inj 50 Mg/Ml Vial IVP Q6HR PRN ITCHING Docusate Sodium 200 mg 08/18/24 21:00 08/18/24 23:22 Docusate Sodium 100 Mg Capsule PO Not Given BID DEVI Ephedrine Sulfate 5 mg 08/18/24 04:23 08/18/24 06:02 Ephedrine 50 Mg/Ml Vial IVP 5 mg Q5M PRN Administration For SBP<100;give until SBP>100 Famotidine 20 mg 08/18/24 00:38 Famotidine 20 Mg/2 Ml Vial IVP DAILY PRN Heartburn Fentanyl 50 mcg 08/18/24 00:38 Fentanyl 100 Mcg/2 Ml Vial IVP Q1H PRN Severe Pain (score 7-10) Hydralazine HCl 5 - 10 mg 08/18/24 00:38 Hydralazine Inj 20 Mg/Ml Vial IVP Q20M PRN SBP> or= 160 OR DBP> or= 110 Protocol Hydralazine HCl 10 mg 08/18/24 12:27 Hydralazine Inj 20 Mg/Ml Vial IVP .ONCE PRN SBP> or= 160 OR DBP> or= 110 Protocol Hydralazine HCl 5 - 20 mg 08/18/24 12:27 Hydralazine Inj 20 Mg/Ml Vial IVP Q20M PRN SBP> or= 160 OR DBP> or= 110 Protocol Lactated Ringer's 500 mls @ 999 mls/hr 08/18/24 00:38 08/18/24 02:11 Lr IV Infused PRN PRN Infusion distress Oxytocin/Sodium Chloride 500 mls @ 999 mls/hr 08/18/24 00:38 Pitocin/Sodium Chloride IV PRN PRN POST- HEMORR PREVENTION Protocol 999 MILLIUNIT/MIN Tranexamic Acid 1,000 mg in 100 mls @ 600 mls/hr 08/18/24 00:38 Tranexamic 1,000 Mg/100ml-Nacl IV Q30M PRN EBL >1200mL and within 3hr Ropivacaine 200 mg in 100 mls @ 0 mls/hr 08/18/24 04:23 08/18/24 11:30 Naropin 0.2% EP Infused PRN PRN Infusion PAIN Protocol Per Protocol Lactated Ringer's 1,000 mls @ 125 mls/hr 08/18/24 09:00 08/18/24 19:47 Lr IV Infused .Q8H DEVI Infusion Oxytocin/Sodium Chloride 500 mls @ 999 mls/hr 08/18/24 12:27 Pitocin/Sodium Chloride IV PRN PRN POST- HEMORR PREVENTION Protocol 999 MILLIUNIT/MIN Ibuprofen 600 mg 08/19/24 12:00 Ibuprofen 600 Mg Tablet PO Q6HR [facility] Labetalol HCl 20 - 80 mg 08/18/24 00:38 Labetalol 20 Mg/4 Ml Syringe IVP Q10M PRN SBP> or= 160 OR DBP> or= 110 Protocol Labetalol HCl 20 mg 08/18/24 00:38 Labetalol 20 Mg/4 Ml Syringe IVP .ONCE PRN SBP> or= 160 OR DBP> or= 110 Protocol Labetalol HCl 20 - 40 mg 08/18/24 00:38 Labetalol 20 Mg/4 Ml Syringe IVP Q10M PRN SBP> or= 160 OR DBP> or= 110 Protocol Labetalol HCl 20 - 40 mg 08/18/24 12:27 Labetalol 20 Mg/4 Ml Syringe IVP Q10M PRN SBP> or= 160 OR DBP> or= 110 Protocol Labetalol HCl 20 mg 08/18/24 12:27 Labetalol 20 Mg/4 Ml Syringe IVP .ONCE PRN SBP> or= 160 OR DBP> or= 110 Protocol Labetalol HCl 20 - 80 mg 08/18/24 12:27 Labetalol 20 Mg/4 Ml Syringe IVP Q10M PRN SBP> or= 160 OR DBP> or= 110 Protocol Lidocaine HCl 20 ml 08/18/24 00:38 Lidocaine 1% 20 Ml Mdv ID 08/21/24 00:38 .ONCE PRN PERINEAL REPAIR Methylergonovine Maleate 0.2 mg 08/18/24 00:38 Methylergonovine 0.2 Mg/Ml Vial IM .ONCE PRN Hemorrhage Metoclopramide HCl 5 mg 08/18/24 00:38 Metoclopramide 10 Mg Tablet PO Q6HR PRN Nausea / Vomiting Metoclopramide HCl 5 mg 08/18/24 00:38 Metoclopramide 10 Mg/2 Ml Vial IVP Q6HR PRN Nausea / Vomiting Metoclopramide HCl 10 mg 08/18/24 04:23 Metoclopramide 10 Mg/2 Ml Vial IVP Q6HR PRN Nausea / Vomiting Misoprostol 600 mcg 08/18/24 00:38 Misoprostol 200 Mcg Tablet BC .ONCE PRN Hemorrhage Misoprostol 800 mcg 08/18/24 00:38 Misoprostol 200 Mcg Tablet SC .ONCE PRN Hemorrhage Nalbuphine HCl 2.5 - 5 mg 08/18/24 04:23 Nalbuphine 10 Mg/Ml Amp IVP Q4H PRN ITCHING Naloxone HCl 0.1 mg 08/18/24 04:23 Naloxone 0.4 Mg/Ml Vial IVP Q2M PRN RR<8 Naloxone HCl 0.4 mg 08/18/24 12:27 Naloxone 0.4 Mg/Ml Vial IVP .ONCE PRN Opioid overdose Nifedipine 10 - 20 mg 08/18/24 00:38 Nifedipine 10 Mg Capsule PO Q20M PRN SBP> or= 160 OR DBP> or= 110 Protocol Nifedipine 10 - 20 mg 08/18/24 12:27 Nifedipine 10 Mg Capsule PO Q20M PRN SBP> or= 160 OR DBP> or= 110 Protocol Ondansetron HCl 4 mg 08/18/24 00:38 Ondansetron Odt 4 Mg Tablet PO Q4HR PRN Nausea / Vomiting Ondansetron HCl 4 mg 08/18/24 04:23 Ondansetron 4 Mg/2 Ml Vial IVP Q6HR PRN Nausea / Vomiting Oxycodone HCl 5 mg 08/18/24 12:27 08/18/24 22:47 Oxycodone 5 Mg Tablet PO 5 mg Q4HR PRN Administration Severe Pain 6 -10 Oxytocin 10 unit 08/18/24 00:38 Oxytocin 10 Unit/Ml Vial IM .ONCE PRN Step One if no IV access. Sodium Chloride 10 ml 08/18/24 00:38 Sodium Chloride Flush 0.9% 10 Ml Syringe IVP PRN PRN NEEDED PER PROVIDER ORDERS Sodium Chloride 10 ml 08/18/24 01:00 08/18/24 19:33 Sodium Chloride Flush 0.9% 10 Ml Syringe IVP Not Given Q8H DEVI Terbutaline Sulfate 0.25 mg 08/18/24 00:38 Terbutaline 1 Mg/Ml Vial SUBQ .ONCE PRN Tachystole Objective Vital Signs/Intake & Output Reviewed Vital Signs: Yes Vital Signs: Vital Signs x48h Temp Pulse Resp BP Pulse Ox 08/19/24 07:26 86 16 132/77 H 97 08/19/24 04:00 36.9 C 89 12 134/79 H 98 Intake & Output: Intake & Output 08/16/24 08/17/24 08/18/24 08/19/24 23:59 23:59 23:59 23:59 Intake Total 5379 / 5379 Output Total 2550 / 2550 Balance 2829 / 2829 Weight (kg) 93 kg Objective General Appearance: positive No acute distress and Alert Eyes Bilateral: positive Normal inspection Neck: positive Nml inspection Respiratory: positive No respiratory distress and Breath sounds nml Cardiovascular: positive Regular rate & rhythm and No murmur Abdomen: positive Nml bowel sounds, Tenderness (Appropriate for postop state) and Other (Uterine fundus firm at umbilicus) Skin: positive Other (Incision with dressing clean/dry/intact) Extremities: positive Non-tender and Full ROM Neurologic/Psychiatric: positive Oriented x3, Motor nml and Mood/affect nml Lab Results 08/19/24 06:29 08/19/24 06:29 Other Labs: Lab Results x24hrs 08/19/24 Range/Units 06:29 WBC 11.8 H (4.8-10.8) x10^3/uL RBC 3.94 L (4.20-5.40) 10^6/uL Hgb 9.3 L (12.0-16.0) g/dL Hct 29.9 L (37.0-47.0) % MCV 75.9 L (81.0-99.0) fL MCH 23.6 L (27.0-31.0) pg MCHC 31.1 L (32.0-36.0) g/dL RDW 16.9 H (12.0-15.0) % Plt Count 168 (130-450) 10^3/uL MPV 11.4 H (7.9-10.8) fL Sodium 138 (135-145) mmol/L Potassium 4.2 (3.5-4.5) mmol/L Chloride 112 H (101-111) mmol/L Carbon Dioxide 21 (21-32) mmol/L Anion Gap 5.0 L (6-13) BUN 10 (6-20) mg/dL Creatinine 0.8 (0.6-1.3) mg/dL Estimated GFR (MDRD) 106 (>89) Glucose 75 (74-104) mg/dL Calcium 8.1 L (8.5-10.3) mg/dL Ferritin 22.1 (11.0-306.8) ng/mL Total Bilirubin 0.4 (0.2-1.0) mg/dL AST 17 (10-42) IU/L ALT 10 (10-60) IU/L Alkaline Phosphatase 118 (42-121) IU/L Total Protein 5.0 L (6.4-8.9) g/dL Albumin 2.6 L (3.2-5.5) g/dL Globulin 2.4 (2.1-4.2) g/dL Albumin/Globulin Ratio 1.1 (1.0-2.2) Assessment/Plan Problem List (1) care following delivery: Impression: POD #1 s/p 1' LTCS performed for failure to progress with a cat 2-3 FHT. Surgery was uncomplicated, and pt doing well postop. She has been afebrile, and BP elevated into high normal to mild HTN range since delivery. -Cont routine postop care and support. -Encourage ambulation and IS use. -Pain mgmt: scheduled ibuprofen 600 mg Q 6 and Tylenol 1000 mg Q 8 hrs; oxycodone 5 mg Q 4 prn breakthru pain -VTE proph: ambulation -Rubella non-immune: plan for MMR prior to discharge (2) Pre-eclampsia affecting puerperium: Impression: BP's moderately elevated intrapartum with urine PCR 0.7. Since delivery, BP's high normal to mild HTN. AM PreE labs wnl. -No indication for antihypertensive at this time. Consider if BP persistently > 140/90. -Monitor inpatient for minimum 48 hr . (3) Microcytosis: Impression: HgB electrophoresis and ferritin labs ordered. (4) Normal labor:
[2024-08-19] MEDS: IBUPROFEN 600 MG TABLET PO SCH (12:21)
--- NOTE | 2024-08-20 09:15 | Discharge Summary ---
"Discharge Summary Admit Date: 08/18/24 Discharge Date: 08/20/24 Discharging Provider: Dr. Peg Pollock Code Status: Attempt Resuscitation Discharge Facility Name: [facility] DIAGNOSES Admission Diagnoses: Term , labor Discharge Diagnoses with Status of Each Condition: 1. Same, now s/p primary low transverse for cat 2-3 heart tracing and failure to progress 2. Pre-eclampsia without severe features HPI History of Present Illness: Patient is a 24 yo admitted for term labor/SROM. course notable for below: Specific Issues/Plans LMP: 11/08/2023 (estimated) TANISHA by LMP: 08/14/2024 US:01/20/2024, 10 weeks 6 days, 08/11/2024 Final TANISHA: 08/14/2024 by LMP consistent with 10-week ultrasound Allergies: NKDA RX: PNV, Zyrtec Chlamydia cervicitis in : -Treated in early , vomited for spell, but took a second dose. Partner also treated. -Repeat collected 04/04 and negative. Pre- Weight: 182lb BMI: 29.61 Blood type: O+ Antibody: NEGATIVE CBC: H/H/PLT 10.3/34.1/236 RUB:NON IMMUNE VZV:IMMUNE HBsAg: NEG HepC: NR RPR/AB-EIA:NR HIV: NR PAP:04/15/2023: ASCUS GC/CT:02/18/24 POSITIVE CHLAMYDIA 04/04- NEGATIVE HSV: denies Genetic testing:[id number]- NEGATIVE Covid: declines Flu: rcvd 05/05/24 FAS:WNL EFW 64% 3 VC anterior placenta REGI normal 50gm OGCT: 81 TDAP: 05/19 given Breast Pump: given RSV: 06/27/24 mls 3rd trimester CBC: 10.3/34.1/236 GBS & GCCT: Negative/Negative Delivery plan: Contraception:Depo-Provera CONSULTS | PROCEDURES Consultations: None Procedures: Primary low transverse HOSPITAL COURSE Hospital Course: Patient was admitted in labor. FHT concerning and cat 2. When labor failed to progress, unable to initiate Pitocin due to intolerance. She had mild to moderate HTN during labor. PreE labs were notable for urine PCR 0.7. was performed for cat 2-3 FHT and failure to progress. Surgery was uncomplicated. , she did very well. BP's returned to high normal (130/80s) without need for antihypertensive medications. She was discharged home on POD #2 ambulating, tolerating a regular diet, voiding, and controlling pain with oral medications. She was afebrile throughout her hospital stay. ALLERGIES Allergies Allergy/AdvReac Type Severity Reaction Status Date / Time banana Allergy Unknown shortness Verified 08/04/24 12:46 of breath pollen extracts Allergy Unknown itchy eyes Verified 08/04/24 12:46 MEDICATIONS Ambulatory Orders Medication Instructions Recorded Confirmed cetirizine 10 mg capsule (Zyrtec) 10 mg PO QDAY PRN allergy symptoms 05/03/24 08/18/24 vits no.126-ferrous fum 1 tab PO DAILY 05/03/24 08/18/24 28 mg iron-folic acid 800 mcg tablet (Classic ) acetaminophen 500 mg tablet 1,000 mg (2 x 500 mg) PO Q8H #30 08/20/24 tabs docusate sodium 100 mg capsule 100 mg PO BID PRN constipation #20 08/20/24 caps ibuprofen 600 mg tablet 600 mg PO Q6HR #30 tabs 08/20/24 oxycodone 5 mg tablet 5 mg PO Q4HR PRN Severe Pain 6 -10 08/20/24 #10 tabs PHYSICAL EXAM AT DISCHARGE General Appearance: positive No acute distress and Alert Eyes Bilateral: positive Normal inspection Neck: positive Nml inspection Respiratory: positive No respiratory distress and Breath sounds nml Cardiovascular: positive Regular rate & rhythm and No murmur Peripheral Pulses: positive 2+ Abdomen: positive Nml bowel sounds, Tenderness (Appropriate for postop state) and Other (Uterine fundus firm at U-1) Skin: positive Color nml and Other (Incision: Steri-strips clean, dry, and intact. No separation, discharge, or erythema.) Extremities: positive Non-tender, Full ROM, Nml appearance and Pedal edema (1+) Neurologic/Psychiatric: positive Oriented x3, Motor nml and Mood/affect nml LABS 08/19/24 06:29 08/19/24 06:29 Other Lab Results: LFTs normal 08/19 - AST 17, ALT 10 QUALITY (Female Hip Fx Only) Was patient sent home on osteoporosis medication?: No FOLLOW UP Follow Up: - 2-3 days for BP check (please call clinic to arrange time) - 2 weeks postop for BP and incision check (please call clinic to schedule) TIME SPENT Time Spent in Discharge (Minutes): 25 Discharge Plan Discharge Patient Disposition: 01 Home, Self Care Condition: Good Prescriptions: New acetaminophen 500 mg Tablet 1,000 mg PO Q8H Qty: 30 0RF docusate sodium 100 mg Capsule 100 mg PO BID PRN (Reason: constipation) Qty: 20 0RF ibuprofen 600 mg Tablet 600 mg PO Q6HR Qty: 30 0RF oxycodone 5 mg Tablet 5 mg PO Q4HR PRN (Reason: Severe Pain 6 -10) Qty: 10 0RF Continued Classic 28 mg iron- 800 mcg tablet 1 tab PO DAILY Zyrtec 10 mg capsule 10 mg PO QDAY PRN (Reason: allergy symptoms) Activity Restrictions: see below Activity Restrictions/Additional Instructions: - No driving until pain-free without narcotic pain medications (2-3 weeks) - No swimming or water immersion for 2 weeks - Pelvic rest for 6 weeks - Light exercise (walking, easy hikes) until 6 wks, then increase as tolerated Diet: Regular Print Language: Pashto Patient Instructions: C Section Dc Follow-up Care: Marlene Sinha MD [Provider Admit Priv/Credential] - (Please call clinic to schedule appts for 08/22 or 08/23 for BP check, then 2 weeks postop for BP and wound check)"
[2024-08-20] MEDS: MEASLES,MUMPS & RUBELLA VACC 0.5 ML VIAL SUBQ ONE (12:37)
[2024-08-20 13:33] VITALS: BP 140/89; TEMP 98.1; O2SAT 98
--- NOTE | 2024-08-20 14:31 | Labor Flowsheet ---
Labor Flowsheet Datetime Report Generated by CPN: 08/20/2024 14:31 Datetime: 08/18/2024 11:14 UTERINE ACTIVITY Monitor Mode: Internal Frequency (min): 2-3 Quality: Moderate Duration (sec): 70-90 Pattern: Normal: <= 5 Contractions in 10 Minutes Resting Tone (Palpate): Relaxed FHR Baseline Rate : 170 FHR Baseline Changes: Tachycardia Variability: Moderate 6-25 bpm Decelerations: Late Comments: heading to OR 11:14 Datetime: 08/18/2024 11:01 Accelerations: None Datetime: 08/18/2024 10:59 Pulse: 110 SpO2 (%): 93 Communication Comments: Consent signed for LaborFlag: Labor Datetime: 08/18/2024 10:45 VITAL SIGNS NBP Sys/Reema/Mean (mmHg): 107 : 81 : 88 Datetime: 08/18/2024 10:35 COMMUNICATION Communication: RN at Bedside; Provider at Bedside Datetime: 08/18/2024 10:30 ASSESSMENT A Monitor Mode: External US Datetime: 08/18/2024 10:01 Resting Tone IUP (mmHg): 20 [place] Units (mmHg): 95 Datetime: 08/18/2024 09:58 Stage of : Labor Temperature (C): 36.9 Datetime: 08/18/2024 09:29 Monitor Interventions for UA: IUPC Inserted Datetime: 08/18/2024 09:09 Patient Position/Activity: Right Lateral Patient Care Comments: peanut ball between knees Datetime: 08/18/2024 09:00 VAGINAL EXAM Dilatation (cm): 8.5 Effacement (%): 100 Station: 0 Exam by: Alex OB Cervix, Consistency: Soft Cervix, Position: Midposition Vaginal Exam Comments: swollen anterior cervix Datetime: 08/18/2024 08:29 Contraction Comments: coupling Datetime: 08/18/2024 06:45 PATIENT CARE IV/Blood Work: IV Bolus Started Datetime: 08/18/2024 06:34 Provider Notified (Name): Dr Sinha Notification Reason: Status Update; Status; Labor Status Datetime: 08/18/2024 06:23 Category: Category II Vaginal Bleeding: None Datetime: 08/18/2024 05:15 Respirations: 15 Datetime: 08/18/2024 04:54 Pain Presence: None/Denies Anesthesia Level Check: T10- Umbilicus Datetime: 08/18/2024 04:18 MEDICATIONS Magnesium/Antihypertensives: Ephedrine IV (mg) @ 5 Datetime: 08/18/2024 02:58 Amniotic Fluid Amount: Scant Amniotic Fluid Odor: Normal Datetime: 08/18/2024 02:53 I/O Interventions: Huber Cath Inserted Datetime: 08/18/2024 02:44 PAIN Pain Scale: 0 Pain Relief Measures: Epidural Given Pain Coping: Talking Through Contractions Datetime: 08/18/2024 02:17 Epidural Procedure: Loading Dose Datetime: 08/18/2024 02:00 PROCEDURE TIME OUT Procedure Type: 0205 Procedure Verify: Correct Patient Identity; Correct Side and Site are Marked; Accurate Procedure Co nsent Form; Agreement on Procedure to be Done; Correct Patient Position; Relevant Images and Results are Properly Labeled and Displayed; Addressed Need to Administer Antibiotics or Fluids for Irrigation ; Safety Precautions Based on Patient History or Medication Use ANESTHESIA Epidural Positioning: Sitting Datetime: 08/18/2024 01:41 Pain Type: Cramping Pain Location: Abdomen Pain Goal: 2 Pain Assessment Comments: requesting epidural Membrane Comments: pt states green none observed Comfort Measures: Breathing/Relaxation; Coaching Datetime: 08/18/2024 01:30 Monitor Interventions for FHR: Ultrasound Adjusted Datetime: 08/18/2024 00:58 Medication Comments: nitrous oxide Datetime: 08/18/2024 00:29 Membrane Status: Ruptured Membranes Ruptured Date/Time: 08/17/2024 21:30 Membranes Rupture Method: Spontaneous Amniotic Fluid Color: Light Meconium
--- NOTE | 2024-09-01 07:38 | ANESTHESIA POST OP EVALUATION ---
Anesthesia Post Eval Post Anesthesia Eval Vitals: Last Vital Signs Temp 36.7 C 08/20/24 13:32 Pulse 76 08/20/24 13:32 Resp 16 08/20/24 13:32 BP 140/89 H 08/20/24 13:32 Pulse Ox 98 08/20/24 13:32 CV Function Including HR & BP: Stable Pain Control: Satisfactory Nausea & Vomiting: Negative Mental Status: Baseline Respiratory Status: Airway Patent Hydration Status: Satisfactory Anesthesia Complications: None
== END 2024-08-20 14:10 | disposition home or self-care (01) | DRG 788 ==
LOC: WFO 00:06 → FBP 00:07
PROVIDERS: ADMIT Obstetrics & Gynecology; ATTEND Obstetrics & Gynecology
DX: Z37.0 Single live birth; O76 Abnormality in fetal heart rate and rhythm complicating labor and delivery; O62.0 Primary inadequate contractions; O99.892 Other specified diseases and conditions complicating childbirth; Z3A.40 40 weeks gestation of pregnancy; N83.8 Other noninflammatory disorders of ovary, fallopian tube and broad ligament; Z91.85 Personal history of military service; O14.04 Mild to moderate pre-eclampsia, complicating childbirth